=== PATIENT | male | born 1980 | race African-American/Black ===

== ENCOUNTER 2025-05-27 09:17 | Emergency (ER) | payer OTHER ==
[~2025-05-27] VITALS: Ht 167.6 cm; Wt 80.0 kg
[2025-05-27 09:24] VITALS: O2SAT 98
[2025-05-27] MEDS ORDERED: TETANUS AND DIPHTHERIA TOX/PF 0.5ML SYR (ADULT) IM ONE (09:45)
[2025-05-27] MEDS: TETANUS, DIPHTHERIA, PERTUSSIS VAC/PF 0.5ML (>10YR OLD) IM ONE (10:33)
[2025-05-27] MEDS: LIDOCAINE HCL 1% 20ML VIAL INFIL ONE (10:33)
[2025-05-27] MEDS ORDERED: BO1 TP (11:33)
[2025-05-27] MEDS: BACITRACIN ZINC OINT UDPKT TOP ONE (11:45)
[2025-05-27] MEDS: ACETAMINOPHEN 500MG TABLET PO ONE (12:10)
[2025-05-27 12:22] VITALS: BP 163/109; PULSE 89; RESP 15; TEMP 37; O2SAT 96
== END 2025-05-27 12:13 | disposition home or self-care (01) ==
LOC: ER 09:17
DX: S61.411A Laceration without foreign body of right hand, initial encounter (principal); I10 Essential (primary) hypertension; X58.XXXA Exposure to other specified factors, initial encounter; Y93.89 Activity, other specified; Y92.89 Other specified places as the place of occurrence of the external cause; Y99.8 Other external cause status
CPT/HCPCS: 73130; 90715; 12034; 90471; 99285; J2003; A6449; Z7610; 12001; 90714; 99283